=== PATIENT | male | born 2000 | race Caucasian/White ===

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

== ENCOUNTER 2024-10-08 15:55 | Emergency (ER) | payer BC, SELFPAY ==
--- NOTE | ~2024-10-08 | CT_ITS ---
CLINICAL HISTORY: head injury CT cervical spine without contrast Comparison: None Findings: Vertebral alignment is within normal limits. No acute fractures or dislocations. Visualized intracranial contents are unremarkable. Soft tissues of the neck are normal. No consolidation or effusion at the lung apices. IMPRESSION: No acute findings. This document has been electronically signed by: Ivonne Calzada MD on 10/08/2024 17:54:19
--- NOTE | ~2024-10-08 | CT_ITS ---
CLINICAL HISTORY: head trauma. seizure CT head without contrast Comparison: None Findings: No intra-axial mass, midline shift, hydrocephalus, or acute hemorrhage. [place]-white matter differentiation is preserved. There is no sinus or mastoid fluid. The orbits are within normal limits. No skull fracture. IMPRESSION: 1. No acute intracranial findings. This document has been electronically signed by: Ivonne Calzada MD on 10/08/2024 17:53:36
[2024-10-08 16:04] VITALS: BP 131/72; PULSE 102; RESP 18; TEMP 36.4; O2SAT 97; BMI 21.6
--- NOTE | 2024-10-08 16:09 | ED.GENADULT ---
HPI - General Adult General Chief complaint: Head Injury Stated complaint: Seizure?? hit at baseball game Time Seen by Provider: 10/08/24 17:49 History of Present Illness ED Provider: Dr. Carbajal HPI narrative: 23 y/o M patient; without significant PMH; presents from a baseball game with + head injury and syncope prior to arrival. The patient collided with another player and struck his head against possibly their knee. He did lose consciousness for maybe 1 minute. He may have had convulsions at the time. The patient primarily complains of generalized head pain. He denies: nausea/vomiting, abdominal pain, visual changes. Related Data Allergies Allergy/AdvReac Type Severity Reaction Status Date / Time No Known Allergies Allergy Verified 10/08/24 16:06 Review of Systems Review of Systems: Yes all other systems are reviewed and are negative Neurologic: Denies Abnormal speech present and Denies Sensory deficit (Neuro) [facility] Past Medical History Attestation statement: The following information was validated with the patient. Source: unable to obtain Social History Social History Advance Directives: No Advance Directives Information Provided: No Physical Exam ED Vital Signs: Vital Signs - 24 hr 10/08/24 16:04 10/08/24 17:50 Temperature 97.6 F 98.2 F Pulse Rate 102 H 87 Respiratory Rate 18 16 Blood Pressure 131/72 134/76 Pulse Oximetry 97 98 Oxygen Delivery Method Room Air Room Air BMI result Body Mass Index 21.6 Patient is afebrile, mildly tachycardic, and hemodynamically stable. Const General: cooperative and no acute distress Orientation/consciousness: patient oriented x3 HENMT Head: Yes normal to inspection and Yes atraumatic Eyes General: appearance normal, both eyes and all related structures Pupils: Equal, round and reactive pupils present EOM: EOMs intact bilaterally Neck Neck: Yes normal visual inspection, Yes full ROM, Yes supple and No tender Chest Chest palpation & inspection: normal inspection of the chest and normal palpation of entire chest wall Resp Effort & Inspection: normal respiratory effort, able to speak in complete sentences, no cough and no respiratory distress Auscultation: clear to auscultation bilaterally Cardio Rate: regular rate Rhythm: regular rhythm Peripheral pulses: Peripheral pulses 2+ throughout GI Inspection: Yes normal to inspection, No Abdominal wall edema and No distended Palpation (GI): Soft to palpation, not firm, nontender, no guarding and not rigid Auscultation: normal bowel sounds Back/Spine/Pelvis Back: No back tenderness Neuro General: patient oriented x3 Cranial nerves: Yes Equal, round and reactive pupils present Cognition (Neuro): normal cognition Speech: No Abnormal speech present Gait exam (Neuro): Normal gait present Motor exam (neuro): 5/5 motor strength present throughout Sensory Exam: No Sensory deficit (Neuro) Coordination: [id number] test normal, Normal rapid alternating movements of the distal upper extremity present (Neuro) and Normal rapid alternating movements of the distal lower extremity present (Neuro) Course Course Course Narrative: RME: 23-year-old male presents to ED for questionable seizure after head trauma. Patient is playing baseball and had a head on head collision with another player and then quality review trainer states he was convulsing. Patient also states left hand pain. Exam negative for any chest abdominal crepitus ecchymosis deformity. Head ENT exam negative for obvious signs of trauma. Lab cat scan ordered Reevaluation(s) Reevaluation #1: Patient is afebrile and hemodynamicallly stable. Reviewed imaging ordered in triage before I evaluated the patient. Labs reviewed. No significant anemia and leukocytosis. Mild transaminitis. CT head and neck are unremarkable. I did discuss concussion precautions with the patient. Last concussion was approx 4 - 6 years ago. This was the patient's final baseball game of the season. He is aware of the concussion signs/symptoms for which to monitor. He did initially endorse left hand pain in triage but by my evaluation he has full range of motion without any focal tenderness. No indication for XR at this time. Patient denies any focal headache at this time. I suspect patient had + head trauma with convulsive syncope, no indication of true seizure activity. Plan: Discharge to home with PCP follow up Return precautions given Medical Decision Making Lab Data 10/08/24 16:28 10/08/24 16:28 Labs: Lab Results 10/08/24 Range/Units 16:28 WBC 10.7 (4.8-10.8) X10*3/uL RBC 4.57 L (4.60-5.80) X10*6/uL Hgb 13.9 L (14.0-18.0) g/dl Hct 38.8 L (42.0-52.0) % MCV 84.9 (80.0-98.0) fL MCH 30.4 (27.0-33.0) pg MCHC 35.8 (31.0-36.0) g/dl RDW 12.0 (11.0-16.0) % Plt Count 322 (160-400) X10*3/uL MPV 10.2 (9.4-12.4) fL Immature Gran % (Auto) 0.6 H (0.0-0.4) % Neut % (Auto) 78.4 H (45-73) % Lymph % (Auto) 13.0 L (20-40) % [place] % (Auto) 7.5 (2-11) % Eos % (Auto) 0.1 (0-4) % Baso % (Auto) 0.4 (0-2) % Lymph # (Auto) 1.4 (1.2-4.9) X10*3/uL [place] # (Auto) 0.8 (0.1-1.2) X10*3/uL Eos # (Auto) 0.0 (0.0-0.4) X10*3/uL Baso # (Auto) 0.0 (0.0-0.2) X10*3/uL Abs Immat Gran (auto) 0.06 H (0.00-0.03) X10*3/uL Absolute Neuts (auto) 8.4 H (2.0-8.3) x10*3/uL Absolute Nucleated RBC 0.000 (0.0-0.012) X10*3/uL Nucleated RBC % (auto) 0.0 (0.0-0.2) /100WBC Sodium 143 (135-145) mmol/L Potassium 4.6 (3.3-5.1) mmol/L Chloride 107 (96-108) mmol/L Carbon Dioxide 24 (22-29) mmol/L Anion Gap 17 (12-20) BUN 18 H (9-16) mg/dL Creatinine 1.06 (0.5-1.4) mg/dL Estim Creat Clear Calc 94.8 Estimated GFR > 60 Random Glucose 104 (60-115) mg/dL Calcium 9.9 (8.4-10.2) mg/dL Magnesium 2.2 (1.6-2.6) mg/dL Total Bilirubin 0.5 (0.0-1.0) mg/dL AST 49 H (5-37) U/L ALT 49 H (0-40) U/L Alkaline Phosphatase 47 (39-117) U/L Total Protein 7.6 (6.5-8.0) g/dL Albumin 4.9 (3.5-5.0) g/dL Urine Color Yellow Urine Appearance Clear Urine pH 6.5 (5.0-9.0) Ur Specific [place] 1.025 (1.005-1.025) Urine Protein Trace (Neg-Trace) mg/dL Urine Glucose (UA) Negative (Negative) mg/dL Urine Ketones Trace (Negative) mg/dL Urine Blood Negative (Negative) Urine Nitrite Negative (Negative) Ur Leukocyte Esterase Small (1+) H (Negative) Urine RBC 0-2 (0-2) /HPF Urine WBC 6-10 (0-5) /HPF Urine WBC Clumps Present Ur Squamous Epith Cells 0-2 (0-2) /HPF Urine Bacteria None Seen (None Seen) Hyaline Casts 0-2 (0-2) /LPF Radiology Impression Discussion of test interpretation with radiology: I have reviewed the radiologist's reading. Radiologist Impression: CLINICAL HISTORY: head injury CT cervical spine without contrast Comparison: None Findings: Vertebral alignment is within normal limits. No acute fractures or dislocations. Visualized intracranial contents are unremarkable. Soft tissues of the neck are normal. No consolidation or effusion at the lung apices. IMPRESSION: No acute findings. This document has been electronically signed by: Ivonne Calzada MD on 10/08/2024 17:54:19 Report Number: [id number]: Total DLP = 1043.00 mGy-cm CLINICAL HISTORY: head trauma. seizure CT head without contrast Comparison: None Findings: No intra-axial mass, midline shift, hydrocephalus, or acute hemorrhage. [place]-white matter differentiation is preserved. There is no sinus or mastoid fluid. The orbits are within normal limits. No skull fracture. IMPRESSION: 1. No acute intracranial findings. This document has been electronically signed by: Ivonne Calzada MD on 10/08/2024 17:53:36 Discharge Plan Discharge Clinical Impression: Closed head injury Patient Disposition: Home, Self-Care Instructions: Head Injury (ED), Sports Concussion (ED) Additional Instructions: As we discussed, you were seen today after a head injury prior to arrival. Your work up in the emergency department was reassuring. We discussed the signs/symptoms for which to watch over the next few days. Take ibuprofen 400mg every 6 hours and tylenol 1g every 6 hours as needed for headache management. Follow up with your sports umpire and primary doctor for medical clearance before returning to play sports. Stand Alone Forms: Work/School Release Discharge Date/Time: 10/08/24 18:19 Print Language: Occitan
[2024-10-08 16:32] LABS: MANUAL DIFF FLAG NO
[2024-10-08 16:47] LABS: Basophils Percent Auto 0.4 % (0-2); Eosinophils Percent Auto 0.1 % (0-4); Hematocrit 38.8 % (42.0-52.0); Hemoglobin 13.9 g/dl (14.0-18.0); Imm Gran Abs Auto 0.06 X10*3/uL (0.00-0.03); Imm Gran Pct Auto 0.6 % (0.0-0.4); Lymphocytes Absolute Auto 1.4 X10*3/uL (1.2-4.9); Mean Corpuscular HGB Conc 35.8 g/dl (31.0-36.0); Mean Corpuscular Hemoglobin 30.4 pg (27.0-33.0); Mean Corpuscular Volume 84.9 fL (80.0-98.0); Mean Platelet Volume 10.2 fL (9.4-12.4); Monocytes Absolute Auto 0.8 X10*3/uL (0.1-1.2); Monocytes Percent Auto 7.5 % (2-11); Neutrophils Absolute Auto 8.4 x10*3/uL (2.0-8.3); Neutrophils Percent Auto 78.4 % (45-73); Platelet Count 322 X10*3/uL (160-400); Red Blood Count 4.57 X10*6/uL (4.60-5.80); White Blood Count 10.7 X10*3/uL (4.8-10.8)
[2024-10-08 16:49] LABS: Appearance Urine Clear; Color Urine Yellow; Glucose Urine UA Negative (Negative); Leukocyte Esterase Urine Small (1+) (Negative); Nitrite Urine Negative (Negative); PH 6.5 (5.0-9.0); Specific Gravity - Urine 1.025 (1.005-1.025); UMIC TRIGGER UACC YES; Urine Blood Negative (Negative); Urine Ketones Trace mg/dL (Negative); Urine Protein Trace mg/dL (Neg-Trace)
[2024-10-08 16:55] LABS: Alanine Aminotransferase 49 U/L (0-40); Albumin Level 4.9 g/dL (3.5-5.0); Anion Gap 17 (12-20); Aspartate Amino Transferase 49 U/L (5-37); Bilirubin Total 0.5 mg/dL (0.0-1.0); Blood Urea Nitrogen 18 mg/dL (9-16); Calcium 9.9 mg/dL (8.4-10.2); Carbon Dioxide 24 mmol/L (22-29); Chloride 107 mmol/L (96-108); Creatinine Clr Calc Pharmacy 94.8; Estimated Glomerular Filt Rate > 60; Glucose Random 104 mg/dL (60-115); Magnesium 2.2 mg/dL (1.6-2.6); Potassium 4.6 mmol/L (3.3-5.1); Sodium 143 mmol/L (135-145); Total Protein 7.6 g/dL (6.5-8.0)
[2024-10-08 17:04] LABS: Bacteria Urine None Seen (None Seen); Hyaline Casts Urine 0-2 /LPF (0-2); RBC Urine 0-2 /HPF (0-2); Squamous Epithelial Cell Urine 0-2 /HPF (0-2); UACC Culture Trigger YES; WBC Clumps Urine Present
[2024-10-08 17:10] LABS: Alkaline Phosphatase 47 U/L (39-117)
[2024-10-08 17:50] VITALS: BP 134/76; PULSE 87; RESP 16; TEMP 36.8; O2SAT 98
--- NOTE | 2024-10-08 18:01 | PC.NURSE ---
patient presents with parents, he was playing baseball when he collided with another person, dad states it was possibly other players knee to patients head. patient had witnessed syncopal episode for about a minute and then convulsed family unsure if patient had seizure. patient became alert and oriented after event but did not remember hitting head. patient pupils equal and unlabored, he has no noted bruises/lacs. patient head round,no bumps or injuries noted. patient denies any neck pain. patient had equal private investigator strengths bilat. normal sinus on the monitor. patient does complain of left thumb pain
== END 2024-10-08 18:19 | disposition home or self-care (01) ==
PROVIDERS: Physician Assistant; Emergency Provider Emergency Medicine; PCP Internal Medicine
DX: S06.9X9A Unspecified intracranial injury with loss of consciousness of unspecified duration, initial encounter (principal); W51.XXXA Accidental striking against or bumped into by another person, initial encounter; Y93.64 Activity, baseball; Y92.9 Unspecified place or not applicable; Y99.9 Unspecified external cause status; R55 Syncope and collapse
CPT/HCPCS: 36415; 70450; 72125; 80053; 81001; 83735; 85025; 87086; 99283; 99284

== ENCOUNTER → 2024-10-08 16:10 | Outpatient (BNV) | payer BC, SELFPAY | PROVIDERS: Emergency Provider Emergency Medicine; PCP Internal Medicine; Visit Provider Radiology Diagnostic Radiology | DX: G40.89 Other seizures (principal); S00.93XA Contusion of unspecified part of head, initial encounter | CPT/HCPCS: 70450; 72125 ==